=== PATIENT | female | born 1980 | race Caucasian/White ===

== ENCOUNTER 2017-03-01 23:30 | Emergency (ER) | payer MEDICAID ==
[~2017-03-01] VITALS: Ht 177.8 cm; Wt 60.8 kg
[2017-03-01 23:31] VITALS: BP 121/81
== END 2017-03-02 00:11 | disposition home or self-care (01) ==
LOC: ED 23:59
DX: L03.115 Cellulitis of right lower limb (principal); B35.0 Tinea barbae and tinea capitis; Z86.14 Personal history of Methicillin resistant Staphylococcus aureus infection
CPT/HCPCS: 99283

== ENCOUNTER 2017-08-28 05:43 | Emergency (ER) | payer MEDICAID ==
[~2017-08-28] VITALS: Ht 177.8 cm; Wt 60.8 kg
[2017-08-28 05:44] VITALS: BP 116/76
[2017-08-28] MEDS ORDERED: HYDROcodone/APAP 5/325 TABLET ONE (06:22)
[2017-08-28] MEDS ORDERED: CLINDAMYCIN 300 MG CAPSULE ONE (06:23)
[2017-08-28] MEDS ORDERED: HYDROcodone/APAP 5/325 TABLET PO ONE (06:30)
[2017-08-28] MEDS ORDERED: CLINDAMYCIN 300 MG CAPSULE PO ONE (06:30)
== END 2017-08-28 06:31 | disposition home or self-care (01) ==
LOC: ED 06:29
DX: K04.7 Periapical abscess without sinus (principal); L24.5 Irritant contact dermatitis due to other chemical products; F17.210 Nicotine dependence, cigarettes, uncomplicated
CPT/HCPCS: 99283